=== PATIENT | male | born 2000 | race Caucasian/White ===

== ENCOUNTER 2020-11-17 17:52 | Observation (INO) | payer BC, SELFPAY ==
[2020-11-17 06:47] VITALS: BMI 31.0
[2020-11-17 17:53] VITALS: BP 135/73; PULSE 85; RESP 16; TEMP 36.3; O2SAT 98; BMI 30.4
--- NOTE | 2020-11-17 18:08 | CT_ITS ---
INDICATION: Kidney Stone - RLQ / groin pain EXAMINATION: CT Abdomen And Pelvis W/O Contrast Injection TECHNIQUE: Helically acquired images were obtained of the abdomen and pelvis without the use of IV contrast. A radiation dose optimization technique was used for this scan. Oral contrast: None. COMPARISON: None FINDINGS: Evaluation of the solid organs and vascular structures is limited without intravenous contrast. Visualized lung bases: Unremarkable Liver: Unremarkable Gallbladder: Contracted. Spleen: Unremarkable Pancreas: Unremarkable Adrenal Glands: Unremarkable Kidneys: Unremarkable Vasculature: Unremarkable GI Tract: The appendix is dilated up to 1 cm. There are 2 appendicoliths each measuring 7 mm in the distal appendix. Lymphadenopathy: None Peritoneum: No ascites. Bladder: Unremarkable Reproductive organs: Unremarkable Bones/Soft tissues: No suspicious osseous or soft tissue lesions CT/Abdomen/Pelvis without Cont IMPRESSION: Acute nonruptured appendicitis. No focal fluid collection or free air. Electronically Signed: Jonah Nina MD at 19:12 EDT Tel , Service support ,
--- NOTE | 2020-11-17 18:08 | ED.VIS.GI ---
HPI HPI - GI History of Present Illness Chief Complaint: Flank Pain Informant: patient Abdominal Pain/Flank Pain Onset: Yesterday Context: Sudden Onset Location: RLQ (In groin and into scrotum on the right) Current Severity: Moderate Maximum Severity: Severe Worsened by: Nothing Relieved by: Nothing Nausea/Vomiting/Emesis GI Symptom: Negative for Nausea and Vomiting Diarrhea/Melena/Hematochezia GI Symptom: Negative for Diarrhea, Melena and Hematochezia Associated Symptoms Associated Symptoms: Negative for Dysuria, Frequency, Hematuria and Urgency Narrative Narrative: Patient with sudden onset of pain in his right groin that radiated into his right scrotum/testicle, started last night, progressed to today, fairly constant and not colicky. Prior similar symptoms: No PFSH PFSH Medical History Anxiety Depression Exercise-induced asthma Neck pain Seasonal affective disorder Seasonal allergies SOB (shortness of breath) Home Medications ascorbic acid (vitamin C) 250 mg tablet 250 mg PO QDAY 10/04/17 [History Last Taken 11/17/20] cholecalciferol (vitamin D3) 25 mcg (1,000 unit) tablet 1,000 unit PO QDAY 10/04/17 [History Last Taken 11/16/20] albuterol sulfate [Ventolin HFA] 2 puff INHALATION Q4H PRN PRN 11/17/20 [History Last Taken 11/17/20] citalopram 20 mg PO QHS 11/17/20 [History Last Taken 11/16/20] multivitamin 1 tab PO DAILY 11/17/20 [History Last Taken 11/17/20] Allergy/AdvReac Type Severity Reaction Status Date / Time No Known Allergies Allergy Verified 11/17/20 06:58 Social History Smoking Status: Never smoker alcohol intake: never ROS ROS ED Constitutional Constitutional ED: Denies chills or fever(s) Eyes Eyes: Denies change in vision or diplopia ENT ENT ED: Denies rhinorrhea or sore throat Cardiovascular Cardiovascular: Denies chest pain or palpitations Respiratory/Chest Respiratory/Chest: Denies cough or dyspnea Gastrointestinal Gastrointestinal: Denies diarrhea, nausea or vomiting Genitourinary Genitourinary ED: Reports as per HPI and scrotal pain; Denies dysuria or hematuria Musculoskeletal Musculoskeletal: Denies back pain or neck pain Integumentary Denies abscess or rash Neurologic Neurologic: Denies headache(s), paresthesias or weakness Psychiatric Psychiatric: Denies anxiety or suicidal thoughts EXAM Physical Exam Const Vital Signs: 11/17/20 17:53 11/17/20 20:02 11/17/20 20:03 Temperature 97.4 F L 98.6 F Temperature Source Temporal Oral Pulse Rate 85 76 76 Respiratory Rate 16 18 18 Blood Pressure 135/73 H 156/71 H 156/71 H Blood Pressure Mean 93 99 99 Pulse Ox 98 96 98 Oxygen Delivery Method Room Air Room Air Room Air Positive well nourished and well developed General Appearance ED: well developed and NAD HEENT Reports moist mucous membranes normocephalic and atraumatic Eyes PERRL and EOMs intact bilaterally Neck full ROM and supple Resp normal respiratory effort and clear to auscultation bilaterally Cardio regular rate, regular rhythm and no murmurs GI non-distended Auscultation: normoactive bowel sounds Palpation: soft and tender RLQ (Mild, distal and lateral); Negative for guarding or rebound tenderness present Narrative: Bilateral testicular lie without tenderness, palpable mass, blue dot sign, palpable mass. Back/Spine General Back: CVA tenderness right (Mild) and other FROM Extremity normal to inspection General Extremety ED: Negative for edema, pulses abnormal or tenderness General Extremity: Negative for edema or pulses abnormal Neuro oriented x3, CN's II-XII intact bilaterally and no sensory deficits noted Sensorium / Orientation: awake and alert Motor Exam: strength 5/5 throughout Skin no rashes or lesions noted and no wounds MDM MDM MDM Narrative Medical decision making narrative: Urinalysis was obtained in addition to CT looking for the possibility of a kidney stone and considering other findings, no kidney stone was found rather the patient has acute appendicitis with an associated appendicolith. Therefore lab work was obtained and I discussed with surgery, patient was made n.p.o. although he had a granola bar an hour ago and has been drinking some water. He was given a dose of Zosyn. Plan is for admission and surgical management in AM. Lab Data Attestation: I reviewed the patient's lab results. Labs: Laboratory Results - last 24 hr 11/17/20 11/17/20 18:35 20:00 WBC 8.9 RBC 5.49 Hgb 16.1 Hct 48.3 MCV 88.0 MCH 29.3 MCHC 33.3 RDW Std Deviation 38.9 RDW Coeff of Afsaneh 12.0 Plt Count 203 MPV 9.8 Immature Gran % (Auto) 0.300 Neut % (Auto) 74.5 H Lymph % (Auto) 17.6 L [place] % (Auto) 6.9 Eos % (Auto) 0.4 Baso % (Auto) 0.3 Absolute Neuts (auto) 6.7 Absolute Lymphs (auto) 1.57 Nucleated RBC % 0 Urine Color Yellow Urine Clarity Clear Urine pH 7.0 Ur Specific [place] 1.010 Urine Protein Negative Urine Glucose (UA) Normal Urine Ketones Negative Urine Occult Blood Negative Urine Nitrite Negative Urine Bilirubin Negative Urine Urobilinogen Normal Ur Leukocyte Esterase Negative Urine RBC 0 SEEN Urine WBC 0 SEEN Ur Squamous Epith Cells 0 SEEN Urine Bacteria 0 SEEN Urine Mucus 0 SEEN Radiography Diagnostic Testing: Radiology Impression Abdomen/Pelvis CT 11/17/20 18:08 IMPRESSION: Acute nonruptured appendicitis. No focal fluid collection or free air. Electronically Signed: Jonah Nina MD at 19:12 EDT Tel , Service support , Discharge Plan Dx/Rx/DC Orders Clinical Impression: Acute appendicitis Disposition Disposition: Acute Care [facility]
[2020-11-17 18:41] LABS: Bacteria 0 SEEN /hpf (None Seen); Mucous, Urine 0 SEEN /hpf (<or=2+); Red Blood Cells-Urine 0 SEEN /hpf (0-5); Squamous Epithelial Cells - UA 0 SEEN /hpf (0-5); White Blood Cells 0 SEEN /hpf (0-5)
[2020-11-17 18:42] LABS: Color, Urine Yellow (Yellow); Glucose, Dipstick Normal (Normal); Ketone-Dipstick Negative (Negative); Leukocyte Esterase-Dipstick Negative /ul (Negative); Nitrite-Dipstick Negative (Negative); Occult Blood-Urine Negative /ul (Negative); Protein-Dipstick Negative (Negative); Urine Bilirubin Dipstick Negative (Negative); Urine Clarity Clear (Clear); Urine Urobilinogen Normal (Normal)
[2020-11-17 20:02] VITALS: BP 156/71; PULSE 76; RESP 18; O2SAT 96
[2020-11-17 20:03] VITALS: BP 156/71; PULSE 76; RESP 18; TEMP 37; O2SAT 98
[2020-11-17 20:06] LABS: Absolute Lymphocyte Count 1.57 X10^3/uL (0.83-4.51); Absolute Neutrophil Count 6.7 X10^3/uL (2.0-7.7); Basophil# 0.03 X10^3/uL; Basophil% 0.3 % (0-1); Eosinophil# 0.04 X10^3/uL; Eosinophils% 0.4 % (0-5); Hematocrit 48.3 % (40-54); Hemoglobin 16.1 g/dL (13.0-16.5); Lymphocyte # 1.57 X10^3/ul (0.83-4.51); Lymphocyte % 17.6 % (19-41); Mean Corp Hgb Conc 33.3 g/dL (32-36); Mean Corpuscular Hgb 29.3 pg (27.0-32.0); Mean Platelet Vol. 9.8 fl (6.2-12.0); Monocyte# 0.62 X10^3/uL; Monocyte% 6.9 % (0-10); NRBC Flagged by Analyzer 0 % (0-5); Neutrophil # 6.65 X10^3/uL (2.7-7.7); Neutrophil % 74.5 % (47-70); Platelet Count 203 K/mm3 (150-450); RBC Distribution Width SD 38.9 fl (35.1-43.9); Red Blood Count 5.49 M/mm3 (4.6-6.2); White Blood Count 8.9 K/mm3 (4.4-11.0)
[2020-11-17 20:22] LABS: Anion Gap 9 (5-15); BUN 14 mg/dL (7-18); BUN/Creat Ratio 11.7 RATIO (10-20); Calcium,Total 9.4 mg/dL (8.5-10.1); Chloride 99 mmol/L (98-107); EST Glomerular Filtration Rate 82 mL/min (>60); Est Glom Filt Rate - Afr Amer 99 mL/min (>60); Glucose 88 mg/dL (74-106); Potassium 3.9 mmol/L (3.5-5.1); Sodium Level 138 mmol/L (136-145)
[2020-11-17 20:33] VITALS: BMI 31.2
--- NOTE | 2020-11-17 21:15 | HP.PCM_ITS ---
HPI - General General Date of Admission: 11/17/20 HPI Narrative YANDEL ROSADO, is a 20 M who presents to the ER due to continued right lower quadrant pain. Patient states pain started yesterday evening. Patient did not have dinner last night due to the pain. Patient did go to urgent care this morning however they did not do much. Patient's mom did call his PCP who recommended coming to the ER as he was continuing to having right lower quadrant pain and some discomfort while urinating. CT abdomen pelvis did show an appendicolith at the tip of the appendix. Blood counts within normal limits with a left shift. Patient did eat a granola bar today at about 8:00 PM and also had a bowl cereal as well as some cheese sticks about 3 PM. [facility] Medical History (Updated 11/17/20 @ 21:[address] Annamarie Sadler MD) Anxiety Depression Exercise-induced asthma Neck pain Seasonal affective disorder Seasonal allergies SOB (shortness of breath) Home Medications ascorbic acid (vitamin C) 250 mg tablet 250 mg PO QDAY 10/04/17 [History Last Taken 11/17/20] cholecalciferol (vitamin D3) 25 mcg (1,000 unit) tablet 1,000 unit PO QDAY 10/04/17 [History Last Taken 11/16/20] albuterol sulfate [Ventolin HFA] 2 puff INHALATION Q4H PRN PRN 11/17/20 [History Last Taken 11/17/20] citalopram 20 mg PO QHS 11/17/20 [History Last Taken 11/16/20] multivitamin 1 tab PO DAILY 11/17/20 [History Last Taken 11/17/20] Allergy/AdvReac Type Severity Reaction Status Date / Time No Known Allergies Allergy Verified 11/17/20 06:58 Social History Smoking Status: Never smoker alcohol intake: never Vital Signs Vital Signs Vital Signs: 11/17/20 17:53 11/17/20 20:02 11/17/20 20:03 Temperature 97.4 F L 98.6 F Temperature Source Temporal Oral Pulse Rate 85 76 76 Respiratory Rate 16 18 18 Blood Pressure 135/73 H 156/71 H 156/71 H Blood Pressure Mean 93 99 99 Pulse Ox 98 96 98 Oxygen Delivery Method Room Air Room Air Room Air Weight Weight: 200 lb Body Mass Index (BMI) 30.4 Physical Exam Const alert, oriented x3 and no apparent distress HEENT normocephalic and head/scalp atraumatic Resp normal respiratory effort Cardio regular rate GI soft to palpation; Negative for non-distended Palpation: tender RLQ and Rovsing's sign; Negative for guarding Extremity no clubbing, cyanosis or edema Neuro CN's II-XII intact bilaterally Psych mental status grossly normal Results Lab / Micro Data Result Diagrams: 11/17/20 20:00 11/17/20 20:00 Labs: Laboratory Results - last 24 hr 11/17/20 11/17/20 11/17/20 18:35 20:00 20:00 WBC 8.9 RBC 5.49 Hgb 16.1 Hct 48.3 MCV 88.0 MCH 29.3 MCHC 33.3 RDW Std Deviation 38.9 RDW Coeff of Afsaneh 12.0 Plt Count 203 MPV 9.8 Immature Gran % (Auto) 0.300 Neut % (Auto) 74.5 H Lymph % (Auto) 17.6 L [place] % (Auto) 6.9 Eos % (Auto) 0.4 Baso % (Auto) 0.3 Absolute Neuts (auto) 6.7 Absolute Lymphs (auto) 1.57 Nucleated RBC % 0 Sodium 138 Potassium 3.9 Chloride 99 Carbon Dioxide 30.0 Anion Gap 9 BUN 14 Creatinine 1.20 Estim Creat Clear Calc 95.00 Est GFR (MDRD) Af Amer 99 Est GFR (MDRD) Non-Af 82 BUN/Creatinine Ratio 11.7 Glucose 88 Calcium 9.4 Urine Color Yellow Urine Clarity Clear Urine pH 7.0 Ur Specific [place] 1.010 Urine Protein Negative Urine Glucose (UA) Normal Urine Ketones Negative Urine Occult Blood Negative Urine Nitrite Negative Urine Bilirubin Negative Urine Urobilinogen Normal Ur Leukocyte Esterase Negative Urine RBC 0 SEEN Urine WBC 0 SEEN Ur Squamous Epith Cells 0 SEEN Urine Bacteria 0 SEEN Urine Mucus 0 SEEN Radiology Impression Abdomen/Pelvis CT 11/17/20 18:08 IMPRESSION: Acute nonruptured appendicitis. No focal fluid collection or free air. Electronically Signed: Jonah Nina MD at 19:12 EDT Tel , Service support , Assessment & Plan Assessment/Plan (1) Acute appendicitis: PLAN: 1. Discussed procedure laparoscopic appendectomy, possible open, possible bowel resection along with the risk but not limited to bleeding, infection/abscess, injury to another organ (small bowel, colon, etc.), adhesion, hernia at incision sites, and anesthesia. Patient and his mom had no further questions this time. Due to patient having recent p.o. intake we will schedule surgery at 6 AM. We will keep patient on IV Zosyn. Patient is okay to have clears until midnight t hen n.p.o. after midnight. Annamarie Sadler M.D. Pager: [phone] [facility] [address] [place] [address], [address] [place] [id number] Office: [phone]
[2020-11-17 21:21] VITALS: BP 142/79; PULSE 64; RESP 16; TEMP 37.3; O2SAT 98
[2020-11-17] MEDS: Citalopram 20 MG Tablet PO (22:23)
[2020-11-17] MEDS: 0.9% Normal Saline 1,000 ML 120 ML IV (22:31)
[2020-11-18] VITALS (11 sets, daily range): BP systolic 118–142; BP diastolic 52–80; PULSE 64–89; RESP 13–18; TEMP 36.5–37.1; O2SAT 97–100
--- NOTE | 2020-11-18 06:00 | APP_PTH ---
PATIENT: YANDEL ROSADO LOC: MS3 U#:[id number] AGE/SX: 20/M ROOM: [facility] [place]11/17/[address]: Dr. Annamarie Sadler MD : 2000 BED: 1 DIS: 11/18/2020 SPEC #: [id number] RECD: 11/18/20 10:07 STATUS: MANUEL REWilmar #: [id number] ANA: 11/18/20 06:[address]: Annamarie Sadler DEPT: SURGICAL PATHOLOGY RECD BY: Kassandra Puckett ENTERED: 11/18/20 11:11 SP TYPE: APPENDIX OTHR DR: Dr. Sowmya Jules, DO Tissues: Appendix, NOS Procedures: Surgery Specimen Level III HEADER OPERATION: Laparoscopic appendectomy PRE-OP DIAGNOSIS: Acute appendicitis TISSUE SUBMITTED: Appendix MICROSCOPIC DIAGNOSIS Appendix, appendectomy: Acute appendicitis and periappendicitis. PEDRO:toma 11/21/2020 MICROSCOPIC DESCRIPTION Slides are reviewed. GROSS DESCRIPTION Received in fixative is one container labeled with the patient's name and designated appendix. The specimen consists of an appendix measuring 8.5 cm in length and up to 1 cm in diameter. No gross perforations are evident. Serial sections reveal a patent lumen with fecal material. No mass lesion is identified. Public Health Analyst sections are submitted in one cassette. / AM:toma 11/18/20 TC:2 CPT: 04995
[2020-11-18] MEDS: Bupiv/Epi 0.25% 30 ML Vial (06:30)
--- NOTE | 2020-11-18 07:15 | OP.PCM_ITS ---
Report of Operation Date of Procedure: 11/18/20 Pre-Operative Diagnosis: Acute appendicitis Post-Operative Diagnosis: Same Surgery/Procedure Performed:: Laparoscopic appendectomy Surgeon: Annamarie Sadler boat laborer: None Type of Anesthesia: General/Supplemental Anesthesiologist: Subhash Garcia Special Medications: Zosyn 3.375 g IV every 8 on the floor for acute appendicitis Estimated Blood Loss (mL): < 10 cc Fluids Replaced: Per anesthesia Description of Procedure: Indications: 20-year-old male presented to the ER with new right lower quadrant pain Saturday night. On workup he was found to have acute appendicitis on CT and a leukocytosis within normal limits. Patient was started on antibiotics in the ER for acute appendicitis-Zosyn IV Description of the procedure: The patient was placed on operating table in supine position. General anesthesia was induced. A timeout was completed verifying correct patient, procedure, position and special equipment prior to beginning procedure. Abdomen was prepped and draped in usual sterile fashion. Incision was made in the natural skin line above the umbilicus with a 15 blade scalpel. The fascia was elevated and incised. Entry into the peritoneum was confirmed visually and no bowel was noted in the vicinity of the incision. The Dunham trocar was placed under direct vision. Abdomen insufflated with a pressure of 12-15 mmHg. Patient tolerated insertion well. The scope was inserted and the abdomen inspected. No injuries from initial trocar placement were noted. Minimal amount of fluid was seen in the right lower quadrant. An direct visualization 2 -5 mm trocars were placed one above the symphysis pubis and below the hairline and one in the left lower quadrant lateral to the rectus muscle. Care is taken to avoid injury to the bladder and inferior epigastric vessels. The table was placed in Trendelenburg position with the right side elevated. The appendix was grasped with atraumatic grasper and elevated. It was noted to be inflamed. A window was developed in the mesoappendix at the point between the base of the appendix and the cecum. An endoscopic 45 mm linear cutting stapler blue load was then used to divide and staple the base of the appendix. Enseal was used to divide the mesoappendix The appendix was withdrawn into the Dunham trocar after being placed endoscopically retrieval bag. Appendix was sent to pathology. The appendiceal stump was then irrigated and hemostasis was assured. Fluid was suctioned no other pathology was identified. Secondary trochars were removed under direct visualization. No bleeding was noted trocar sites. The laparoscope withdrawn and the umbilical trocar removed. The abdomen was allowed to collapse. Local anesthesia of 20 mL of 0.25% Marcaine was used at the incision sites. The umbilical trocar site was closed with the [id number] 0 Vicryl suture. The skin was closed up to clear sutures of 4-0 Monocryl and Steri-Strips. The patient was extubated. The patient tolerated the procedure well and was taken to the postanesthesia care unit in satisfactory condition. Complications None
--- NOTE | 2020-11-18 07:20 | EX.PCM.DISCH ---
Discharge Instructions Diet Discharge Diet: Light diet - advance as tolerated Activity Discharge Activity: May Not Drive (while taking narcotic pain medications.) May shower in (days): 1 Lifting Restrictions: no lifting >20 lbs x 2 wks, no strenuous exercise for 4 wks Dressing / Incision Call your doctor if your incision/area has: Continuous Slow Oozing, Sudden Increased Bleeding, Increased Pain/ Swelling, Increased Redness, Foul Smelling Discharge and Swelling at the incision site Call your doctor if you observe: Fever of 101 or Higher Remove Dressing in: 2 days Cleanse incision/area with: Soap & Water Additional Dressing/Incision Instructions:: Steri-Strips will fall off in 7 to 10 days, if they do not fall off okay to remove after 10 days. Follow Up Care Please Follow Up With: Annamarie Sadler MD When: Call the office for a follow-up appointment 2 weeks; after 5 PM and on the weekends call [phone] with any concerns. Test Results: Test results from this visit will be discussed in further detail at your follow-up appointment, if applicable. Discharge Plan Admission Admit Date/Time: 11/17/20 20:14 Attending Provider: Annamarie Sadler Primary Care Provider: Sowmya Jules Instructions Additional Instructions / Restrictions: Okay to take ibuprofen 400-600 mg PO q6hr PRN along with the Percocet. Avoid Tylenol since there is already Tylenol in the Percocet. Take all pain meds with food. Percocet can cause constipation recommend taking daily stool softener (i.e. Colace/docusate) while taking the pain meds. Recommend starting some MiraLAX in 1 to 2 days if no bowel movement. If still no bowel movement the following day recommend taking magnesium citrate half the bottle and waiting 4-6 hours if still no results take the other half the bottle. Discharge Orders/Prescriptions Prescriptions: New oxycodone-acetaminophen [Percocet] 5-325 mg tablet 1 - 2 tab PO Q6H PRN (Reason: pain) 3 Days Qty: 15 RF: 0 Continued cholecalciferol (vitamin D3) [Vitamin D3] 1,000 unit tablet 1,000 unit PO QDAY RF: 0 ascorbic acid (vitamin C) [Vitamin C] 250 mg tablet 250 mg PO QDAY RF: 0 albuterol sulfate [Ventolin HFA] 90 mcg/actuation HFA aerosol inhaler 2 puff INHALATION Q4H PRN PRN (Reason: Wheezing) RF: 0 citalopram 20 mg tablet 20 mg PO QHS RF: 0 multivitamin Tablet 1 tab PO DAILY RF: 0 Referrals / Follow Up: Sowmya Jules DO [Primary Care Provider] - Disposition Disposition (needs filled in before D/C Order can be placed): Home, self care
[2020-11-18] MEDS: 0.9% Normal Saline 1,000 ML 120 ML IV (07:36)
--- NOTE | 2020-11-18 10:51 | PHA.DC.MC ---
Pharmacy Service has performed discharge medication reconciliation and counseling for this patient. 1. PERCOCET 1-2T PO Q6H PRN PAIN The patient's discharge medication list was reviewed for discrepancies and discrepancies were resolved. Home Medications ascorbic acid (vitamin C) 250 mg tablet 250 mg PO QDAY 10/04/17 cholecalciferol (vitamin D3) 25 mcg (1,000 unit) tablet 1,000 unit PO QDAY 10/04/17 albuterol sulfate [Ventolin HFA] 2 puff INHALATION Q4H PRN PRN 11/17/20 citalopram 20 mg PO QHS 11/17/20 multivitamin 1 tab PO DAILY 11/17/20 oxycodone-acetaminophen [Percocet] 1 - 2 tab PO Q6H PRN 3 Days #15 tab 11/18/20 The patient was counseled on the following discharge medications and changes in medications for homegoing were reviewed. The Reason for Use, instructions for use, and potential side effects were reviewed for all new medications. The patient's questions regarding all of their medications were answered. The patient was able to verbally demonstrate an understanding of their discharge medications.
[2020-11-18] MEDS: oxyCODONE 5 MG Tablet PO (12:28)
== END 2020-11-18 14:37 | disposition home or self-care (01) ==
LOC: ED 19:55 → MS3 23:03
PROVIDERS: Admitting Provider Surgery; Emergency Provider Emergency Medicine; PCP Pediatrics; Visit Provider Surgery
PROC: 0DTJ4ZZ Resection of Appendix, Percutaneous Endoscopic Approach (ICD-10-PCS; CPT 44970; principal; 2020-11-18 06:00)
DX: K35.80 Unspecified acute appendicitis (principal); F41.9 Anxiety disorder, unspecified; F32.9 Major depressive disorder, single episode, unspecified; J45.990 Exercise induced bronchospasm; Z79.899 Other long term (current) drug therapy
CPT/HCPCS: 00840; 44970; 74176; 80048; 81001; 85025; 87426; 88304; 96361; 96365; 99218; 99251; 99283; J7030; J7050; A4216; C1760; G0378; G0463; J2405

== ENCOUNTER → 2020-11-17 | Outpatient (CLI) | payer BC, SELFPAY ==
[2020-11-17 06:47] VITALS: BMI 31.0
[2020-11-17 11:45] LABS: Bacteria 0 SEEN /hpf (None Seen); Mucous, Urine 0 SEEN /hpf (<or=2+); Red Blood Cells-Urine 0 SEEN /hpf (0-5)
[2020-11-17 11:54] LABS: Color, Urine Yellow (Yellow); Glucose, Dipstick Normal (Normal); Ketone-Dipstick Negative (Negative); Leukocyte Esterase-Dipstick 25 /ul (Negative); Nitrite-Dipstick Negative (Negative); Occult Blood-Urine Negative /ul (Negative); Protein-Dipstick Negative (Negative); Urine Bilirubin Dipstick Negative (Negative); Urine Clarity Clear (Clear); Urine Urobilinogen Normal (Normal); Urine pH 6.5 (5.0 - 8.0)
[2020-11-17 12:12] LABS: Squamous Epithelial Cells - UA 0-5 SEEN /hpf (0-5); White Blood Cells 0-5 SEEN /hpf (0-5)
[2020-11-17 14:11] LABS: Chlamydia Trachomatis by PCR Negative (Negative); Neisserai gonorrhoeae by PCR Negative (Negative); Probe Check PASS; Sample Adequacy Control PASS; Specimen Processing Control PASS
== END | disposition home or self-care (01) ==
LOC: LABSPEC 10:54
PROVIDERS: Visit Provider Physician Assistant
DX: R10.30 Lower abdominal pain, unspecified (principal)
CPT/HCPCS: 81001; 87086; 87491; 87591